=== PATIENT | male | born 1990 | race Caucasian/White ===

== ENCOUNTER 2016-10-11 08:47 | Inpatient (IN) | payer OTHER ==
[2016-10-11 10:53] VITALS: BMI 19.9
--- NOTE | 2016-10-11 12:08 | HP ---
Admission [facility] Chief Complaint: I need to get cleaned. Allergies/Adverse Reactions: Allergies Allergy/AdvReac Type Severity Reaction Status Date / Time No Known Drug Allergies Allergy Verified 10/08/16 13:07 nuts Allergy Intermediate Hives Uncoded 10/08/16 13:07 History of Present Illness: Pt is a 25yr old male with a history of heroin, cocaine and cannabis dependence. Pt is currently on MMTP program with a dose of 60mg however pt missed three days of methadone. Pt will begin with 40mg and increase by 10mg until pt reaches a total of 60mg. Exam Limitations: No Limitations - Ebola screening Have you traveled outside of the country in the last 21 days: No Have you had contact with anyone from an Ebola affected area: No Have you been sick,other than usual withdrawal symptoms: No Do you have a fever: No - Review of Systems Constitutional: Chills, Loss of Appetite, Changes in sleep EENT: reports: Nose Congestion Respiratory: reports: Cough, Productive cough GI: reports: Constipated, Poor Appetite, Poor Fluid Intake, Indigestion : reports: No Symptoms Reported Musculoskeletal: reports: No Symptoms Reported Integumentary: reports: No Symptoms Reported Neuro: reports: No Symptoms reported Endocrine: reports: No Symptoms Reported Hematology: reports: No Symptoms Reported Psychiatric: reports: Judgement Intact, Mood/Affect Appropiate, Orientated x3, Agitated, Anxious Other Systems: Reviewed and Negative Patient History - Patient Medical History Hx Anemia: No Hx Asthma: Yes (MDI) Hx Chronic Obstructive Pulmonary Disease (COPD): No Hx Cancer: No Hx Cardiac Disorders: No Hx Congestive Heart Failure: No Hx Hypertension: No Hx Hypercholesterolemia: No Hx Pacemaker: No HX Cerebrovascular Accident: No Hx Seizures: No Hx Diabetes: No Hx Gastrointestinal Disorders: No Hx Liver Disease: No Hx Genitourinary Disorders: No Hx Sexually Transmitted Disorders: Yes (SYPHILIS & GONORRHEA TX IN THE PAST) Hx Renal Disease (ESRD): No Hx Thyroid Disease: No Hx Human Immunodeficiency Virus (HIV): No (NEGATIVE HX 3 WEEKS AGO;) Hx Hepatitis C: No (negative) Hx Depression: Yes (anxiety) Hx Suicide Attempt: No (denies any S/H ideation had only thoughts) Hx Bipolar Disorder: Yes Hx Schizophrenia: No - Patient Surgical History Past Surgical History: Yes Hx Orthopedic Surgery: Yes (DUE TO ABSCESS IN 2014) Anesthesia Reaction: No - PPD History Previous Implant?: Yes Documented Results: Negative w/o proof PPD to be Administered?: Yes - Reproductive History Patient is a Female of Child Bearing Age (11 -55 yrs old): No - Smoking Cessation Smoking history: Current every day smoker Have you smoked in the past 12 months: Yes Aproximately how many cigarettes per day: 20 Hx Chewing Tobacco Use: No Initiated information on smoking cessation: Yes 'Breaking Loose' booklet given: 10/11/16 - Substance & Tx. History Hx Substance Use: Yes Substance Use Type: Cocaine, Heroin, Marijuana Hx Substance Use Treatment: No - Substances Abused Heroin Route: Inhalation Frequency: Daily Amount used: 3-5 bags Age of first use: 24 Date of Last Use: 10/10/16 Cocaine Route: Inhalation Frequency: 3-6 times per week Amount used: 2 grams Age of first use: 16 Date of Last Use: 10/08/16 Marijuana/Hashish Route: Smoking Frequency: Daily Amount used: 10 blunts Age of first use: 12 Date of Last Use: 10/10/16 Family Disease History - Family Disease History Family Disease History: Heart Disease: Grandparent (), Mother (heart mumur) Admission Physical Exam S - Vital Signs Vital Signs: Vital Signs - 24 hr 10/11/16 10:48 Temperature 97.2 F L Pulse Rate 69 Respiratory 18 Rate Blood Pressure 110/76 - Physical General Appearance: Yes: Appropriately Dressed, Thin, Tremorous, Irritable HEENTM: Yes: Hearing grossly Normal, Normal Voice, Nasal Congestion, Rhinorrhea Respiratory: Yes: Normal Breath Sounds, No Respiratory Distress, Rhonchi, Wheezing Neck: Yes: No masses,lesions,Nodules Breast: Yes: Within Normal Limits Cardiology: Yes: Regular Rate, S1, S2, Irregular Abdominal: Yes: Normal Bowel Sounds, Non Tender, Flat Genitourinary: Yes: Within Normal Limits Back: Yes: Normal Inspection Musculoskeletal: Yes: full range of Motion Extremities: Yes: Normal Capillary Refill, Normal Inspection Neurological: Yes: Fully Oriented, Alert, Normal Mood/Affect Integumentary: Yes: Normal Color Lymphatic: Yes: Within Normal Limits - Diagnostic (1) Nicotine dependence Current Visit: Yes Status: Chronic Qualifiers: Nicotine product type: cigarettes Substance use status: in withdrawal Qualified Code(s): F17.213 - Nicotine dependence, cigarettes, with withdrawal (2) Psoriasis Current Visit: Yes Status: Chronic (3) Cannabis dependence, uncomplicated Current Visit: Yes Status: Chronic (4) Cocaine dependence with withdrawal Current Visit: Yes Status: Chronic (5) History of asthma Current Visit: Yes Status: Chronic (6) Methadone maintenance therapy patient Current Visit: Yes Status: Chronic Comment: dose verified with [facility] mmtp confirmed with Lalo Becker RN and JASMYNE Wilkerson. Pt regularly gets 60mg but missed three days. pt will start with 40mg and it will be increased by 10mg until he reaches a total of 60mg. (7) Heroin dependence Current Visit: Yes Status: Chronic Cleared for Admission [facility] - Detox or Rehab [facility] Level of Care: Medically Managed Claeared for Rehab Admission: Yes [facility] Breath Alcohol Content Breath Alcohol Content: 0 Urine Drug Screen - Results Drug Screen Negative: No Urine Drug Screen Results: THC-Marijuana, OPI-Opiates, BZO-Benzodiazepines, MTD- Methadone
[2016-10-11] MEDS ORDERED: ACETAMINOPHEN 325 MG TABLET (FP) PO PRN (12:26)
[2016-10-11] MEDS ORDERED: IBUPROFEN 400 MG TABLET (FP) PO PRN (12:26)
[2016-10-11] MEDS ORDERED: LOPERAMIDE HCL 2 MG CAPSULE PO PRN (12:26)
[2016-10-11] MEDS ORDERED: MENTHOL/PHENOL 1 EACH UD MM PRN (12:26)
[2016-10-11] MEDS ORDERED: diphenhydrAMINE HCL 50 MG CAPSULE PO PRN (12:26)
[2016-10-11] MEDS ORDERED: guaiFENesin/D-METHORPHAN HB 10 ML UNIT-DOSE CUPS PO PRN (12:26)
[2016-10-11] MEDS ORDERED: MAGNESIUM CITRATE 300 ML BOTTLE PO PRN (12:26)
[2016-10-11] MEDS ORDERED: MAG HYDROX/AL HYDROX/SIMETH 30 ML UNIT-DOSE CUP PO PRN (12:26)
[2016-10-11] MEDS ORDERED: ALBUTEROL SO4 2.5/IPRATROPIUM 0.5 INH SOL 3 ML VIAL.NEB. NEB ONE (13:57)
[2016-10-11] MEDS ORDERED: METHADONE HCL 40 MG DISPERSABLE TABLET PO ONE (14:00)
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
[2016-10-11] MEDS: MAGNESIUM HYDROX 2400MG/30ML ORAL SUSPENSION 30 ML CUP PO PRN (15:55)
[2016-10-11 15:56] LABS: MCH 28.7 pg (25.7-33.7); MEAN PLT VOLUME 8.9 fl (7.5-11.1); PLATELET COUNT 303 K/MM3 (134-434); WHITE BLOOD COUNT 9.5 K/mm3 (4.0-10.0)
[2016-10-11] MEDS: hydrOXYzine PAMOATE 50 MG CAPSULE (FP) PO PRN ×2 (15:56→21:27)
[2016-10-11] MEDS: NICOTINE POLACRILEX 4 MG GUM BUC PRN ×2 (15:56→18:08)
[2016-10-11] MEDS ORDERED: TUBERCULIN PPD 5 TU/0.1ML VIAL ID ONE (16:00)
[2016-10-11 16:01] LABS: URINE APPEARANCE CLEAR; URINE BILIRUBIN NEGATIVE (NEGATIVE); URINE BLOOD NEGATIVE (NEGATIVE); URINE COLOR LTYELLOW; URINE GLUCOSE (UA) NEGATIVE (NEGATIVE); URINE KETONE NEGATIVE (NEGATIVE); URINE LEUK ESTERASE NEGATIVE (NEGATIVE); URINE NITRITE NEGATIVE (NEGATIVE); URINE PROTEIN NEGATIVE (NEGATIVE); URINE UROBILINOGEN NEGATIVE mg/dL (0.2-1.0)
[2016-10-11 16:10] LABS: ALBUMIN 4.4 g/dl (3.4-5.0); ANION GAP 5 (8-16); BILIRUBIN,TOTAL 0.3 mg/dL (0.2-1.0); CALCIUM 9.6 mg/dL (8.5-10.1); CO2 28 mmol/L (21-32); CREATININE 0.8 mg/dL (0.7-1.3); GLUCOSE,RANDOM 89 mg/dL (74-106); SGOT/AST 16 U/L (15-37); SGPT/ALT 24 U/L (12-78); TOT PROT 7.5 g/dl (6.4-8.2)
[2016-10-11 16:11] LABS: ALK PHOS 78 U/L (45-117)
[2016-10-11] MEDS: P-EPHED 60MG/TRIPROLIDI 2.5MG TABLET PO PRN (18:07)
[2016-10-11] MEDS: ALBUTEROL SO4 2.5/IPRATROPIUM 0.5 INH SOL 3 ML VIAL.NEB. NEB PRN (18:39)
[2016-10-11] MEDS: QUEtiapine FUMARATE 50 MG TABLET PO SCH (21:26)
[2016-10-11] MEDS: THIAMINE HCL 100 MG TABLET (FP) PO SCH (21:27)
[2016-10-12] MEDS: ALBUTEROL SO4 2.5/IPRATROPIUM 0.5 INH SOL 3 ML VIAL.NEB. NEB PRN ×2 (02:29→12:37)
[2016-10-12] MEDS ORDERED: METHADONE HCL 40 MG DISPERSABLE TABLET ONE (04:43)
[2016-10-12] MEDS ORDERED: METHADONE HCL 10 MG TABLET ONE (04:43)
[2016-10-12] MEDS ORDERED: METHADONE HCL 10 MG TABLET PO ONE (06:00)
[2016-10-12] MEDS ORDERED: METHADONE 40 MG, METHADONE 10 MG PO ONE (06:00)
[2016-10-12] MEDS: NICOTINE POLACRILEX 4 MG GUM BUC PRN ×5 (06:19→21:49)
[2016-10-12] MEDS: hydrOXYzine PAMOATE 50 MG CAPSULE (FP) PO PRN ×2 (06:19→10:52)
[2016-10-12] MEDS: P-EPHED 60MG/TRIPROLIDI 2.5MG TABLET PO PRN ×2 (06:19→14:27)
[2016-10-12] MEDS: PRENATAL VITAMINS W/ FOLIC ACID TABLET (FP) PO SCH (09:41)
[2016-10-12] MEDS: NICOTINE 21 MG/24 HOURS TOPICAL PATCH TD SCH (09:41)
--- NOTE | 2016-10-12 10:31 | PN ---
Psychiatric Progress Note Vital Signs: Vital Signs Period Temp Pulse Resp BP Sys/Meek Pulse Ox Last 24 Hr 97.2 F-97.6 F 53-69 16-20 110-113/69-77 Date of Session: 10/12/16 Chief Complaint:: "I want to switch to Buspar because Vistaril is not helping my anxiety" HPI: Patient addressing Opoid, Cocaine and Cannabis Dependence comorbid with Opoid Dependence on Agonist Therapy, Nicotine Dependence and Bipolar II Disorder ROS: Asthma, Psoriasis Current Medications: Active Medications Generic Name Dose Route Start Last Admin Trade Name Freq PRN Reason Stop Dose Admin Acetaminophen 650 mg 10/11/16 12:26 Tylenol - PO Q4H PRN PAIN Al Hydroxide/Mg Hydroxide 30 ml 10/11/16 12:26 Mylanta Oral Suspension - PO Q6H PRN DYSPEPSIA Albuterol Sulfate 2 puff 10/11/16 12:28 Ventolin Hfa Inhaler - IH Q4H PRN WHEEZING Albuterol/Ipratropium 1 amp 10/11/16 12:33 10/12/16 02:29 Duoneb - NEB 1 amp Q4H PRN Administration SHORTNESS OF BREATH Buspirone HCl 15 mg 10/12/16 14:00 Buspar - PO TID MAINOR Diphenhydramine HCl 50 mg 10/11/16 12:26 Benadryl - PO HSMR1 PRN INSOMNIA Eucalyptus/Menthol/Phenol/Sorbitol 1 each 10/11/16 12:26 Cepastat Lozenge - MM Q4H PRN SORE THROAT Guaifenesin 10 ml 10/11/16 12:26 Robitussin Dm - PO Q6H PRN COUGH Hydroxyzine Pamoate 50 mg 10/11/16 12:26 10/12/16 06:19 Vistaril - PO 50 mg Q4H PRN Administration AGITATION Ibuprofen 400 mg 10/11/16 12:26 Motrin - PO Q6H PRN SEVERE PAIN Loperamide HCl 4 mg 10/11/16 12:26 Imodium - PO Q6H PRN DIARRHEA Magnesium Citrate 300 ml 10/11/16 12:26 Citroma - PO Q48H PRN CONSTIPATION Magnesium Hydroxide 30 ml 10/11/16 12:26 10/11/16 15:55 Milk Of Magnesia - PO 30 ml DAILY PRN Administration CONSTIPATION Methadone HCl 40 mg/ Methadone 60 mg 10/13/16 06:00 HCl 20 mg PO 10/18/16 05:59 DAILY@0600 MAINOR Nicotine 21 mg 10/12/16 10:00 10/12/16 09:41 Nicoderm Patch - TD 21 mg DAILY MAINOR Administration Nicotine Polacrilex 4 mg 10/11/16 12:26 10/12/16 09:43 Nicorette Gum - BUC 4 mg Q2H PRN Administration NICOTINE REPLACEMENT RX Multivit/Folic Acid/Iron 1 tab 10/12/16 10:00 10/12/16 09:41 Vitamins (Sjr) - PO 1 tab DAILY MAINOR Administration Pseudoephedrine/Triprolidine 1 combo 10/11/16 12:26 10/12/16 06:19 Actifed - PO 1 combo TID PRN Administration NASAL CONGESTION Quetiapine Fumarate 50 mg 10/11/16 22:00 10/11/16 21:26 Seroquel - PO 50 mg HS MAINOR Administration Thiamine HCl 100 mg 10/11/16 22:00 10/11/16 21:27 Vitamin B1 - PO 100 mg HS MAINOR Administration Medication(s) Change(s): Start Buspar 15 mg po TID Current Side Effect: No Lab tests ordered: Yes Lab tests reviewed: Yes Provider note:: Patient reports that he continues to feel anxious despite taking Vistaril as needed. Told marketing copywriter that he took Buspirone 15 mg po TID in the past and was very helpful in alleviating his anxiety Total face to face time:: 25 Mental Status Exam - Mental Status Exam Alert and Oriented to: Time, Place, Person Cognitive Function: Fair Patient Appearance: Well Groomed Mood: Anxious Affect: Appropriate Patient Behavior: Cooperative Speech Pattern: Clear Voice Loudness: Normal Thought Process: Intact, Goal Oriented Thought Disorder: Not Present Hallucinations: Denies Suicidal Ideation: Denies Homicidal Ideation: Denies Insight/Judgement: Fair Sleep: Fair Appetite: Good Muscle strength/Tone: Normal Gait/Station: Normal Psychiatric Treatment Plan - Problem List (1) Opioid dependence Current Visit: Yes (2) Cocaine dependence with withdrawal Current Visit: Yes (3) Cannabis dependence, uncomplicated Current Visit: Yes (4) Opioid dependence on agonist therapy Current Visit: Yes (5) Nicotine dependence Current Visit: Yes Qualifiers: Nicotine product type: cigarettes Substance use status: in withdrawal Qualified Code(s): F17.213 - Nicotine dependence, cigarettes, with withdrawal (6) Bipolar II disorder Current Visit: Yes (7) Asthma Current Visit: Yes (8) Psoriasis Current Visit: Yes Initial treatment plan: 1) Start Buspar 15 mg po TID. 2) Monitor progress
[2016-10-12] MEDS: MAGNESIUM HYDROX 2400MG/30ML ORAL SUSPENSION 30 ML CUP PO PRN (12:20)
[2016-10-12] MEDS: ALBUTEROL SO4 6.7 GM HFA INHALER IH PRN (12:32)
[2016-10-12] MEDS ORDERED: predniSONE 20 MG TABLET (UD) PO ONE (12:49)
--- NOTE | 2016-10-12 13:06 | PN ---
[facility] Progress Note Note: patient had history of asthma,wheezing,on steroid in the past,prednisone taper
[2016-10-12] MEDS: BUDESONIDE/FORMETEROL FUMARATE 80/4.5 mcg INHALER IH SCH ×2 (13:29→21:01)
--- NOTE | 2016-10-12 17:13 | EKG ---
Test Reason : Blood Pressure : / mmHG Vent. Rate : 047 BPM Atrial Rate : 047 BPM P-R Int : 142 ms QRS Dur : 090 ms QT Int : 446 ms P-R-T Axes : 047 055 043 degrees QTc Int : 394 ms SINUS BRADYCARDIA MODERATE VOLTAGE CRITERIA FOR LVH, MAY BE NORMAL VARIANT BORDERLINE ECG NO PREVIOUS ECGS AVAILABLE Confirmed by SULMA TAN MD ([id number]) on 10/12/2016 5:13:07 PM Referred By: Kenan Argueta Confirmed By:SULMA TAN MD
[2016-10-12] MEDS: QUEtiapine FUMARATE 50 MG TABLET PO SCH (21:01)
[2016-10-12] MEDS: THIAMINE HCL 100 MG TABLET (FP) PO SCH (21:01)
[2016-10-13] MEDS ORDERED: METHADONE HCL 10 MG TABLET ONE (04:22)
[2016-10-13] MEDS ORDERED: METHADONE HCL 40 MG DISPERSABLE TABLET ONE (04:22)
[2016-10-13] MEDS: P-EPHED 60MG/TRIPROLIDI 2.5MG TABLET PO PRN (05:59)
[2016-10-13] MEDS ORDERED: METHADONE 40 MG, METHADONE 20 MG PO SCH (06:00)
[2016-10-13] MEDS: ALBUTEROL SO4 6.7 GM HFA INHALER IH PRN (06:00)
[2016-10-13] MEDS ORDERED: METHADONE HCL 10 MG TABLET PO SCH (06:00)
[2016-10-13 06:36] VITALS: BP 121/80; PULSE 55; TEMP 98.6
[2016-10-13] MEDS: NICOTINE POLACRILEX 4 MG GUM BUC PRN ×2 (06:43→09:28)
[2016-10-13] MEDS: NICOTINE 21 MG/24 HOURS TOPICAL PATCH TD SCH (09:27)
[2016-10-13] MEDS: BUDESONIDE/FORMETEROL FUMARATE 80/4.5 mcg INHALER IH SCH (09:27)
[2016-10-13] MEDS: PRENATAL VITAMINS W/ FOLIC ACID TABLET (FP) PO SCH (09:27)
[2016-10-13] MEDS ORDERED: predniSONE 10 MG TABLET (UD) PO ONE (10:00)
--- NOTE | 2016-10-13 22:14 | PN ---
S Progress Note Note: CALLED BY NURSE STATED PATIENT DID NOT WANT TO CONTINUE TREATMENT,SIGNED RELEASE AMA, DID NOT WANT TO WAIT,DR HWANG NOTIFIED BY NURSE,MS [facility] NURSING PROGRAM PROPOSALS COORDINATOR INFORMED BY NURSE
[2016-10-14] MEDS ORDERED: predniSONE 20 MG TABLET (UD) PO ONE (10:00)
[2016-10-15] MEDS ORDERED: predniSONE 10 MG TABLET (UD) PO ONE (10:00)
[2016-10-16] MEDS ORDERED: predniSONE 5 MG TABLET (UD) PO ONE (10:00)
== END 2016-10-13 17:20 | disposition left against medical advice (07) | DRG 770 ==
LOC: YASAS 08:47 → Y3W 13:20
PROVIDERS: ADMIT Psychiatry & Neurology Psychiatry; ATTEND Psychiatry & Neurology Psychiatry
PROC: HZ42ZZZ Group Counseling for Substance Abuse Treatment, Cognitive-Behavioral (ICD-10-PCS; principal; 2016-10-11)
DX: F11.20 Opioid dependence, uncomplicated (principal); F14.20 Cocaine dependence, uncomplicated; F12.20 Cannabis dependence, uncomplicated; F17.213 Nicotine dependence, cigarettes, with withdrawal; F31.81 Bipolar II disorder; J45.909 Unspecified asthma, uncomplicated; L40.9 Psoriasis, unspecified; Z87.438 Personal history of other diseases of male genital organs
CPT/HCPCS: 36415; 80053; 81003; 81015; 85027; 85660; 86593; 86803; 93005; 93010; 94640